=== PATIENT | female | born 1925 | race Caucasian/White ===

== ENCOUNTER 2016-12-12 17:48 | Inpatient (IN) | payer MEDICARE, OTHER ==
[~2016-12-12 17:48] MED LIST: CALCARB 600 W-1 EACH PO; CRANBERRY400 M2 PO; HYDRALAZINE HCL25 M1 PO; METOPROLOL SUCC25 M1 PO; MILK OF MAGNESIA PO; NAMENDA10 M1 PO; NORVASC10 M2 PO; PRILOSEC OTC20 M1 PO; PRINIVIL20 M1 PO; TYLENOL325 M2 PO; VITAMIN D32000 UNI2 PO; ZOCOR20 M1 PO; ZOLOFT50 M1 PO
[2016-12-12 18:40] LABS: BASO % 0.1 % (0-2); EOS % 1.8 % (0-7); EOSINOPHIL ABSOLUTE COUNT 0.2 tho/cmm (0.0-0.7); HGB-HEMOGLOBIN 14.2 gm/dl (12.0-15.5); IMMATURE GRANULOCYTES ABSOLUTE 0.02 tho/cmm (0-0.03); IMMATURE GRANULOCYTES PERCENT 0.2 % (0-0.3); LYMPH % 6.9 % (20-45); LYMPH ABSOLUTE COUNT 0.7 tho/cmm (0.8-4.5); MCH (MEAN CORPUSCULAR HGB) 28.3 pg (28.0-32.0); MCHC MEAN CORPUSCULAR HGB CONC 32.3 % (32.0-36.0); MCV (MEAN CELL VOLUME) 87.6 fl (82.0-96.0); MEAN PLATELET VOLUME 10.8 cmc (9.4-12.4); MONO % 4.9 % (0-12); MONOCYTE ABSOLUTE COUNT 0.5 tho/cmm (0.0-1.2); NEUTROPHILS % 86.1 % (40-80); PLATELET COUNT 205 tho/cmm (150-450); RED BLOOD COUNT 5.02 mil/cmm (4.00-5.20); RED CELL DISTRIBUTION WIDTH 14.4 % (12.4-16.4); WHITE BLOOD COUNT 10.5 tho/cmm (4.0-10.0)
[2016-12-12] MEDS ORDERED: LISINOPRIL40 M1 PO (18:57)
[2016-12-12] MEDS ORDERED: ASPIRIN81 M1 PO (18:57)
[2016-12-12] MEDS ORDERED: TOPROL XL50 M1 PO (18:57)
[2016-12-12 18:58] LABS: ALB/GLOB RATIO 0.8 (0.8-2.0); ALBUMIN 3.4 g/dl (3.5-5.0); ALKALINE PHOSPHATASE 68 U/L (33-138); ALT/SGPT 13 U/L (12-78); AST/SGOT 18 U/L (10-40); BILIRUBIN,TOTAL 0.8 mg/dl (0-1.5); BLOOD UREA NITROGEN 11 mg/dl (6-24); CARBON DIOXIDE-VENOUS 29 mmol/L (22-32); CHLORIDE 103 mmol/l (96-110); CREATININE 1.01 mg/dl (0.50-1.10); GLUCOSE 165 mg/dL (70-110); SODIUM 142 mmol/L (135-145); eGFR VALUE FOR BLACK 57 mL/Min
[2016-12-12] MEDS ORDERED: FLUDROCORTISON0.1 M1 PO (18:58)
[2016-12-12] MEDS ORDERED: MACROBID 100 M100 M1 PO (18:59)
[2016-12-12 19:02] LABS: ANION GAP 13 mmol/L (0-20); PROLACTIN 112 ng/ml
[2016-12-12 19:04] LABS: POTASSIUM 2.5 mmol/L (3.7-5.1)
[2016-12-12 22:17] LABS: URINE BILIRUBIN NEGATIVE (NEG); URINE BLOOD NEGATIVE (NEG); URINE GLUCOSE (UA) NEGATIVE (NEG); URINE KETONE NEGATIVE (NEG); URINE LEUKOCYTE ESTERASE POSITIVE (NEG); URINE NITRITE NEGATIVE (NEG); URINE PROTEIN NEGATIVE (NEG)
[2016-12-12 22:21] LABS: URINE APPEARANCE HAZY; URINE COLOR YELLOW
[2016-12-12 22:22] LABS: URINE WBC 20-25 /[HPF] (0-5)
[2016-12-12 22:23] LABS: URINE BACTERIA 2+; URINE EPITHELIAL CELLS 0-1 /[HPF] (0-10); URINE RBC 0-1 /[HPF] (0-5)
[2016-12-13 00:02] LABS: MAGNESIUM 2.4 mg/dl (1.3-2.6)
[2016-12-13 00:21] LABS: TSH-THYROID STIMULATING HORM. 5.28 uIU/ml (0.40-3.80)
[2016-12-13 06:15] LABS: BASO % 0.1 % (0-2); EOSINOPHIL ABSOLUTE COUNT 0.2 tho/cmm (0.0-0.7); HCT-HEMATOCRIT 38.7 % (34.0-49.0); HGB-HEMOGLOBIN 12.3 gm/dl (12.0-15.5); IMMATURE GRANULOCYTES ABSOLUTE 0.01 tho/cmm (0-0.03); IMMATURE GRANULOCYTES PERCENT 0.1 % (0-0.3); LYMPH % 4.9 % (20-45); LYMPH ABSOLUTE COUNT 0.4 tho/cmm (0.8-4.5); MCHC MEAN CORPUSCULAR HGB CONC 31.8 % (32.0-36.0); MCV (MEAN CELL VOLUME) 88.2 fl (82.0-96.0); MONOCYTE ABSOLUTE COUNT 0.6 tho/cmm (0.0-1.2); NEUTROPHIL ABSOLUTE COUNT 6.7 tho/cmm (1.6-8.0); NEUTROPHIL-AUTOMATED 6.7 tho/cmm (1.6-8.0); NEUTROPHILS % 84.9 % (40-80); PLATELET COUNT 191 tho/cmm (150-450); RED BLOOD COUNT 4.39 mil/cmm (4.00-5.20); RED CELL DISTRIBUTION WIDTH 14.5 % (12.4-16.4); WHITE BLOOD COUNT 7.9 tho/cmm (4.0-10.0)
[2016-12-13 07:01] LABS: ANION GAP 7 mmol/L (0-20); BLOOD UREA NITROGEN 9 mg/dl (6-24); CALCIUM 8.1 mg/dl (8.5-10.5); CARBON DIOXIDE-VENOUS 31 mmol/L (22-32); CHLORIDE 113 mmol/l (96-110); CREATININE 0.73 mg/dl (0.50-1.10); GLUCOSE 111 mg/dL (70-110); POTASSIUM 3.2 mmol/L (3.7-5.1); SODIUM 148 mmol/L (135-145); eGFR VALUE FOR BLACK 85 mL/Min
[2016-12-14 06:00] LABS: ANION GAP 7 mmol/L (0-20); BLOOD UREA NITROGEN 11 mg/dl (6-24); CALCIUM 7.8 mg/dl (8.5-10.5); CARBON DIOXIDE-VENOUS 31 mmol/L (22-32); CHLORIDE 112 mmol/l (96-110); CREATININE 0.62 mg/dl (0.50-1.10); GLUCOSE 98 mg/dL (70-110); POTASSIUM 3.5 mmol/L (3.7-5.1); SODIUM 146 mmol/L (135-145); eGFR VALUE FOR BLACK >90 mL/Min
[2016-12-15 06:27] LABS: ANION GAP 13 mmol/L (0-20); BLOOD UREA NITROGEN 6 mg/dl (6-24); CALCIUM 8.2 mg/dl (8.5-10.5); CARBON DIOXIDE-VENOUS 25 mmol/L (22-32); CHLORIDE 112 mmol/l (96-110); CREATININE 0.56 mg/dl (0.50-1.10); GLUCOSE 96 mg/dL (70-110); POTASSIUM 3.4 mmol/L (3.7-5.1); SODIUM 147 mmol/L (135-145); eGFR VALUE FOR BLACK >90 mL/Min
[2016-12-15 17:17] LABS: ANION GAP 11 mmol/L (0-20); BLOOD UREA NITROGEN 12 mg/dl (6-24); CALCIUM 8.6 mg/dl (8.5-10.5); CARBON DIOXIDE-VENOUS 28 mmol/L (22-32); CHLORIDE 112 mmol/l (96-110); CREATININE 0.72 mg/dl (0.50-1.10); GLUCOSE 108 mg/dL (70-110); SODIUM 146 mmol/L (135-145); eGFR VALUE FOR BLACK 86 mL/Min
[2016-12-15 17:20] LABS: POTASSIUM 4.6 mmol/L (3.7-5.1)
[2016-12-17 06:02] LABS: ANION GAP 10 mmol/L (0-20); BLOOD UREA NITROGEN 9 mg/dl (6-24); CALCIUM 8.7 mg/dl (8.5-10.5); CARBON DIOXIDE-VENOUS 28 mmol/L (22-32); CHLORIDE 110 mmol/l (96-110); CREATININE 0.64 mg/dl (0.50-1.10); GLUCOSE 93 mg/dL (70-110); SODIUM 145 mmol/L (135-145); eGFR VALUE FOR BLACK >90 mL/Min
[2016-12-17 06:11] LABS: POTASSIUM 3.4 mmol/L (3.7-5.1)
[2016-12-18 05:46] LABS: ANION GAP 10 mmol/L (0-20); BLOOD UREA NITROGEN 17 mg/dl (6-24); CALCIUM 8.8 mg/dl (8.5-10.5); CARBON DIOXIDE-VENOUS 29 mmol/L (22-32); CHLORIDE 111 mmol/l (96-110); CREATININE 0.87 mg/dl (0.50-1.10); GLUCOSE 100 mg/dL (70-110); SODIUM 146 mmol/L (135-145); VALPROIC ACID (DEPAKOTE) 73 ug/ml (50-100); eGFR VALUE FOR BLACK 68 mL/Min
[2016-12-18 05:52] LABS: POTASSIUM 4.3 mmol/L (3.7-5.1)
[2017-03-26] MEDS ORDERED: BISCOLAX10 MG PR (21:05)
[2017-03-26] MEDS ORDERED: MAPAP325 M2 PO (21:06)
== END 2016-12-18 16:32 | DRG 56 ==
LOC: EDMED 17:48 → EMR2 21:36 → 5EB 22:04
PROVIDERS: Emergency Medicine; Hospitalist; Internal Medicine; ADMIT Hospitalist
DX: I69.198 Other sequelae of nontraumatic intracerebral hemorrhage (principal); G92 Toxic encephalopathy; E87.0 Hyperosmolality and hypernatremia; I95.2 Hypotension due to drugs; F03.90 Unspecified dementia, unspecified severity, without behavioral disturbance, psychotic disturbance, mood disturbance, and anxiety; R56.9 Unspecified convulsions; B37.9 Candidiasis, unspecified; Z66 Do not resuscitate; E87.6 Hypokalemia; T38.0X5A Adverse effect of glucocorticoids and synthetic analogues, initial encounter; I10 Essential (primary) hypertension; E78.00 Pure hypercholesterolemia, unspecified; Z79.82 Long term (current) use of aspirin; R73.9 Hyperglycemia, unspecified; R00.1 Bradycardia, unspecified; R82.71 Bacteriuria
CPT/HCPCS: G8978-GP-CK; G8979-GP-CJ; G8996-GN-CJ; G8997-GN-CI; G8999-GN-CK; G9158-GN-CK; G9186-GN-CK; J0360; J1650; J1940; J1953; J2405; J3480; J7030; P9612